=== PATIENT | female | born 1965 | race Caucasian/White ===

== ENCOUNTER 2024-03-26 10:51 | Day surgery (SDC) | payer BC ==
[2024-03-25 13:02] VITALS: BMI 29.2
[2024-03-26 11:59] LABS: #Basophils 0.08 10x3/uL (0.0-0.2); %Eosinophils 4.2 % (0.0-10.0); %Lymphocytes 45.7 % (21.0-51.0); %Monocytes 7.7 % (0.0-10.0); %Neutrophils 41.1 % (42.0-75.0); Hemoglobin 12.8 g/dL (12.0-16.0); Mean Corpuscular HGB CONC 32.8 g/dL (32.0-36.0); Mean Corpuscular Hemoglobin 31.8 pg (27.0-31.0); Mean Platelet Volume 9.2 fL (7.4-10.4); Platelet Count 264 10x3/uL (130-400); RBC Distribution Width 12.2 % (11.5-14.5); Red Blood Cell (RBC) Count 4.02 mill/uL (4.20-5.40)
[2024-03-26] MEDS ORDERED: PROPOFOL 20 ML ONE ×2 (12:27→12:54)
[2024-03-26] MEDS ORDERED: Lidocaine 2% PF 5 ML VIAL ONE (12:27)
[2024-03-26] MEDS ORDERED: Ondansetron PF 4 MG/2 ML Vial ONE (13:11)
[2024-03-26] MEDS ORDERED: Dexamethasone 4 mg/ml Vial ONE (13:11)
[2024-03-26] MEDS ORDERED: CEFAZOLIN 2 GM VIAL ONE (13:36)
[2024-03-26] MEDS ORDERED: fentaNYL PF 100 MCG/2 ML SYRINGE ONE (13:55)
[2024-03-26] MEDS ORDERED: PHENYLEPHRINE-NS 100 MCG/ML 10 ML SYRINGE ONE (14:02)
[2024-03-26] MEDS ORDERED: Glycopyrrolate 0.2 MG/ML 5 ML SYRINGE ONE (14:13)
[2024-03-26] MEDS ORDERED: Bacitracin Zinc Ointment 30 gm TUBE ONE (14:54)
== END 2024-03-26 18:45 | disposition home or self-care (01) ==
LOC: SDC 10:51
PROVIDERS: ATTEND Orthopaedic Surgery Hand Surgery
PROC: 0RGV04Z Fusion of Left Metacarpophalangeal Joint with Internal Fixation Device, Open Approach (ICD-10-PCS; principal; 2024-03-26)
DX: M15.1 Heberden's nodes (with arthropathy) (principal); I10 Essential (primary) hypertension; Z79.899 Other long term (current) drug therapy; Z88.6 Allergy status to analgesic agent; Z90.49 Acquired absence of other specified parts of digestive tract; Z96.653 Presence of artificial knee joint, bilateral
CPT/HCPCS: 85025; A6223; C1894; J1100; J2405; J2704